=== PATIENT | female | born 1955 | race Caucasian/White ===

== ENCOUNTER → 2021-11-19 | Outpatient (CLI) | payer MEDICARE, OTHER ==
[~2021-11-19] MED LIST: 24 HOUR ALLERG9.9 ML; BUDESONIDE-FO10.2 G1 PO; COLACE100 MG PO; CYCLOBENZAPRINE10 MG PO; GABAPENTIN300 MG PO; GLIPIZIDE10 MG PO; HYDROCODONE-AC1 EACH PO; JANUVIA100 MG PO; K-TAB ER20 MEQ PO; LANTUS SOL100 UNIT/1 SQ; LASIX40 MG PO; LEVOXYL25 MCG PO; MAG-OX 400 TAB400 MG PO; OMEPRAZOLE20 M1 PO; SINGULAIR10 MG PO; VITAMIN D31250 MCG PO; ZOCOR40 MG PO
[2021-11-19 12:47] LABS: HEMOGLOBIN 16.9 gm/dl (12.3-15.3); RED BLOOD COUNT 5.18 M/UL (4.00-5.10); WHITE BLOOD COUNT 7.2 K/UL (4.5-11.0)
[2021-11-19 13:01] LABS: BUN/CREATININE RATIO 21 (0-10)
== END ==
LOC: OPSV2 10:00 → EDSTATUS 11:00 → OPSV2 11:00
PROVIDERS: Orthopaedic Surgery
DX: Z01.818 Encounter for other preprocedural examination (principal); M16.11 Unilateral primary osteoarthritis, right hip; R94.31 Abnormal electrocardiogram [ECG] [EKG]; I25.2 Old myocardial infarction
CPT/HCPCS: 80048; 83036; 85025; 93005